=== PATIENT | male | born 1940 | race Caucasian/White ===

== ENCOUNTER → 2017-07-27 | Outpatient (CLI) | payer BC | END | disposition home or self-care (01) | LOC: C.PATHSPEC 18:13 | PROVIDERS: ATTEND Podiatrist Foot & Ankle Surgery | DX: B07.9 Viral wart, unspecified (principal) ==

== ENCOUNTER → 2017-07-31 | Outpatient (CLI) | payer BC | END | disposition home or self-care (01) | LOC: C.LABSPEC 17:40 | PROVIDERS: ATTEND Podiatrist Foot & Ankle Surgery | DX: B07.9 Viral wart, unspecified (principal) ==